=== PATIENT | male | born 1985 ===

== ENCOUNTER 2016-07-18 17:33 | Emergency (ER) | payer OTHER ==
--- NOTE | ~2016-07-18 | EKG ---
PATIENT: ADONAY NEWSOME UNIT #: [id number] Ventricular Rate: 53 BPM Atrial Rate: 53 BPM P-R Interval: 132 ms QRS Duration: 94 ms Q-T Interval: 426 ms QTC Calculation(Bezet): 399 ms P Sher[place]: 69 degrees Calculated R Sherwood: 75 degrees Calculated T Sherwood: 63 degrees Diagnosis Line: Sinus bradycardia Diagnosis Line: Otherwise normal ECG Diagnosis Line: Diagnosis Line: Confirmed by MARY ALICE PENG MD ([id number]) on 07/18/2016 Diagnosis Line: 4:44:09 PM INTERPRETING MD: GINETTE MERAZ
[2016-07-18 14:41] LABS: BASOPHIL# 0.1 X10e3 (0-0.3); BASOPHIL% 0.7 % (0-2.5); DIFF IND NO; EOSINOPHIL# 0.2 X10e3 (0-0.7); EOSINOPHIL% 1.5 % (0.0-7.0); HEMATOCRIT 50.2 % (38.0-50.0); HEMOGLOBIN 16.3 gm/dL (13.0-16.0); LYMPHOCYTE% 26.7 % (17.0-45.0); MEAN CELL VOLUME 76.9 FL (83-96); MEAN CORPUSCULAR HEMOGLOBIN 24.9 PG (28-34); MEAN CORPUSCULAR HGB CONC 32.4 g/dL (30-36); MEAN PLATELET VOLUME 8.9 FL (6.5-11.5); MONOCYTE# 0.6 X10e3 (0-1.0); MONOCYTE% 5.4 % (3.0-12.0); NEUTROPHIL# 7.5 X10e3 (1.5-7.1); NEUTROPHIL% 65.7 % (40-75); PLATELET COUNT 219 X10e3 (140-420); RED BLOOD COUNT 6.53 X10e (3.90-5.60); RED CELL DISTRIBUTION WIDTH 15.4 % (11.0-15.5); WHITE BLOOD COUNT 11.4 X10e3 (4.0-10.5)
[2016-07-18 15:07] LABS: ALBUMIN SERUM 4.8 g/dL (3.5-5.0); BILIRUBIN, DIRECT 0.1 mg/dL (0.0-0.2); BILIRUBIN,INDIRECT 0.6 mg/dL (0.0-0.9); BILIRUBIN,TOTAL 0.7 mg/dL (0.2-2.0); BUN/CREATININE RATIO 14.28; CALCIUM SERUM 9.4 mg/dL (8.4-10.2); CREATININE SERUM 0.7 mg/dL (0.6-1.4); GLOM FILT RATE Estimated 124.9 mL/min (>60); POTASSIUM 4.2 mmol/L (3.5-5.1); PROTEIN TOTAL SERUM 7.8 g/dL (6.0-8.3)
[2016-07-18 15:12] LABS: POC - CKMB <1.0 ng/mL (0.0-7.9); POC - TROPONIN <0.05 ng/mL (<=0.05)
== END 2016-07-18 17:39 | disposition left against medical advice (07) ==
LOC: CED 17:33
DX: Z53.21 Procedure and treatment not carried out due to patient leaving prior to being seen by health care provider (principal)
CPT/HCPCS: 80048; 80076; 82553; 84484; 85025; 93005